=== PATIENT | female | born 1965 | race Two or more races ===

== ENCOUNTER 2019-06-12 13:42 | Outpatient (CLI) | payer OTHER ==
[2019-06-12] MEDS ORDERED: OMNIPAQUE 350 MG/ML, 100ML BOTTLE ONE (15:07)
== END 2019-06-12 23:59 | disposition home or self-care (01) ==
LOC: CFH 13:42
PROVIDERS: ATTEND Nurse Practitioner Family
DX: I60.8 Other nontraumatic subarachnoid hemorrhage (principal); Z96.89 Presence of other specified functional implants
CPT/HCPCS: 70496; Q9967